=== PATIENT | female | born 1970 ===

== ENCOUNTER 2023-01-09 12:54 | Outpatient (REF) | payer OTHER, SELFPAY ==
--- NOTE | ~2023-01-09 | MM_ITS ---
EXAMINATION: MM DIAGNOSTIC DIGITAL BREAST TOMOSYNTHESIS, BILATERAL CLINICAL INFORMATION: Due for yearly. Also follow-up probable benign 2 mm asymmetric density posterior left breast overlying the pectoralis, just above the posterior nipple line, noted on outside imaging. Prior history reduction mammoplasty, 2019. The lifetime risk of breast cancer based on the Tyrer-Cuzick Model is 11%. COMPARISON: Outside mammography ([facility] [place] [facility], [place], [place]): 07/17/2022 (BI-RADS 3); 10/05/2021 10/21/2016; left breast ultrasound 07/17/2022. TECHNIQUE: Digital breast tomosynthesis is performed in both the craniocaudal and mediolateral oblique views along with computer-aided detection (CAD). Synthesized 2D images are generated from the tomosynthesis. Additional left MLO view is performed. FINDINGS: The breasts are almost entirely fatty (ACR BI-RADS breast composition Category a). Background stromal and fibroglandular densities are similar to prior studies and there is no developing density or interval mass or architectural abnormality. No abnormal calcifications. Small intramammary nodes stable posterior upper outer right breast. The axilla and skin contours are unremarkable. Finding for follow-up posterior left breast on MLO view is not demonstrated. The depth of imaging appears consistent with the prior outside exam. No suspicious changes. Results are discussed with the patient at time of visit. MM/MM tomosynthesis diagnostic BI IMPRESSION: -No mammographic evidence of malignancy. ASSESSMENT: BI-RADS 2: Benign RECOMMENDATION: Routine annual mammography screening. This patient's information was entered into a reminder system with a target due date for their next mammogram.
== END 2023-01-09 12:55 | disposition home or self-care (01) ==
LOC: HO.MAMMO 12:54
PROVIDERS: PCP Obstetrics & Gynecology
DX: N64.4 Mastodynia (principal)
CPT/HCPCS: 77062; 77066